=== PATIENT | female | born 1965 | race Caucasian/White ===

== ENCOUNTER 2019-07-27 05:12 | Emergency (ER) | payer OTHER ==
[2019-07-27 07:08] LABS: ABSOLUTE LYMPHOCYTES (AUTO) 0.9 10^3/uL (0.5-4.7); ABSOLUTE MONOCYTES (AUTO) 0.6 10^3/uL (0.1-1.4); ABSOLUTE NEUT (AUTO) 8.9 10^3/uL (1.7-8.2); BASOPHILS % (AUTO) 0.3 % (0-2); EOSINOPHILS % (AUTO) 0.1 % (0-6); HEMATOCRIT 39.1 % (36.0-47.0); HEMOGLOBIN 12.6 g/dL (12.0-15.5); MEAN CORPUSCULAR HEMOGLOBIN 23.5 pg (27.0-33.4); MEAN CORPUSCULAR HGB CONC 32.2 g/dL (32.0-36.0); MEAN CORPUSCULAR VOLUME 73 fl (80-97); MONOCYTES % (AUTO) 5.3 % (3-13); PLATELET COUNT 228 10^3/uL (150-450); RED BLOOD COUNT 5.36 10^6/uL (3.72-5.28); RED CELL DISTRIBUTION WIDTH 16.3 % (11.5-14.0); SEGMENTED NEUTROPHILS % (AUTO) 85.3 % (42-78); TOTAL CELLS COUNTED % (AUTO) 100 %; WHITE BLOOD COUNT 10.4 10^3/uL (4.0-10.5)
[2019-07-27 07:19] LABS: AMORPHOUS SEDIMENT,URINE TRACE /HPF; APPEARANCE,URINE CLOUDY; BILIRUBIN,URINE NEGATIVE (NEGATIVE); COLOR,URINE YELLOW; GLUCOSE, URINE NEGATIVE (NEGATIVE); KETONES,URINE TRACE mg/dL (NEGATIVE); LEUKOCYTE ESTERASE,URINE NEGATIVE (NEGATIVE); NITRITE,URINE NEGATIVE (NEGATIVE); PROTEIN,URINE 100 mg/dL (NEGATIVE); URINE SPECIFIC GRAVITY 1.018; UROBILINOGEN,URINE NEGATIVE mg/dL (<2.0)
[2019-07-27] MEDS ORDERED: NORMAL SALINE 1000 ML 1,000 ML IV ONE (07:27)
[2019-07-27 07:31] LABS: ALBUMIN 4.2 g/dL (3.5-5.0); ALKALINE PHOSPHATASE 113 U/L (38-126); ANION GAP 11 (5-19); ASPARTATE AMINO TRANSFERASE 30 U/L (14-36); BILIRUBIN,TOTAL 1.2 mg/dL (0.2-1.3); BLOOD UREA NITROGEN 18 mg/dL (7-20); CALCIUM 9.5 mg/dL (8.4-10.2); CARBON DIOXIDE 30 mmol/L (22-30); CHLORIDE 103 mmol/L (98-107); GLUCOSE 105 mg/dL (75-110); POTASSIUM 3.9 mmol/L (3.6-5.0); TOTAL PROTEIN 6.9 g/dL (6.3-8.2)
--- NOTE | 2019-07-27 08:23 | RADIOLOGY REPORT (SQ) ---
EXAM DESCRIPTION: CT ABD/PELVIS NO ORAL OR IV COMPLETED DATE/TIME: 07/27/2019 7:49 am REASON FOR STUDY: flank pain, L COMPARISON: None. TECHNIQUE: CT scan of the abdomen and pelvis performed without intravenous or oral contrast. Images reviewed with lung, soft tissue, and bone windows. Reconstructed coronal and sagittal MPR images revi ewed. All images stored on PACS. All CT scanners at this facility use dose modulation, iterative reconstruction, and/or weight based d osing when appropriate to reduce radiation dose to as low as reasonably achievable (ALARA). [facility]: Dose Right [facility]: CareDose [facility]: Dose Right [facility]: Teradose 4D [facility]: Smart Oonair RADIATION DOSE: CT Rad equipment meets quality standard of care and radiation dose reduction techniq ues were employed. CTDIvol: 6.6 mGy. DLP: 364 mGy-cm.mGy. LIMITATIONS: None. FINDINGS: LOWER CHEST: No basilar consolidation or pleural effusion. No cardiomegaly or pericardial effusion. NON-CONTRASTED LIVER, SPLEEN, ADRENALS: Evaluation is limited due to the absence of intravenous contr ast. The 1.6 cm long axis fluid-attenuation lesion within segment II of the liver could represent a simple hepatic cyst. There is no CT evidence of hepatic steatosis. The spleen is normal in size. T here is no abnormality of the adrenal glands PANCREAS: No abnormality of the pancreas GALLBLADDER: No abnormality that is apparent on CT. RIGHT KIDNEY AND URETER: The kidney is asymmetrically enlarged and there is asymmetric stranding of t he perinephric fat and mild hydronephrosis/hydroureter; these findings are secondary to a 2.5 mm calc ulus in the right ureterovesical junction. There is no other renal or ureteral calculus. LEFT KIDNEY AND URETER: Evaluation is limited due to the absence of intravenous contrast. There is no hydronephrosis, nephrolithiasis, hydroureter or ureterolithiasis. AORTA AND RETROPERITONEUM: No aneurysmal dilatation of the abdominal aorta or enlarged retroperitonea l adenopathy. BOWEL AND PERITONEAL CAVITY: No abnormality. APPENDIX: Normal. PELVIS, BLADDER, AND ABDOMINAL WALL:No adnexal mass, pelvic adenopathy, or pelvic free fluid. The ur inary bladder is contracted. There is no abdominal wall mass or hernia BONES: No acute findings. OTHER: None. IMPRESSION: 2.5 mm calculus in the right ureterovesical junction the results in mild upstream hydron ephrosis and hydroureter COMMENT: Quality ID # [id number]: Final reports with documentation of one or more dose reduction techniques (e.g., Automated exposure control, adjustment of the mA and/or kV according to patient size, use of iterative reconstruction technique) TECHNICAL DOCUMENTATION: JOB ID: [id number] [employer]- All Rights Reserved Reading location - IP/workstation name: [email or web address]
[2019-07-27] MEDS ORDERED: ONDANSETRON ODT 4 MG TAB (6 TAB/ER DISP) PO PRN (08:30)
[2019-07-27] MEDS ORDERED: HYDROCODONE/ACETAMINOPHEN 5-325 MG (6 TAB/ER DISP) PO PRN (08:30)
[2019-07-27] MEDS ORDERED: OXYCODONE-ACETAMINOPHEN 5-325 MG TABLET PO ONE (08:32)
[2019-07-27 08:50] VITALS: BP 124/90
--- NOTE | 2019-07-27 12:34 | ER Document Report ---
Entered by MALATHI SMILEY SCRIBE 07/27/19 0701 Acting as scribe for:ALEXA RHODES DO ED General - General Chief Complaint: Flank Pain Stated Complaint: flank pain Time Seen by Provider: 07/27/19 06:09 Primary Care Provider: IHSAN DESIR MD [NO LOCAL MD] - Follow up in 1 week Mode of Arrival: Ambulatory Information source: Patient Notes: Patient is a 54-year-old female who presents to the emergency department today with complaints of right lower quadrant pain that radiates to her back with associated vomiting. Patient states that she had a lot to drink last night and she thinks it may be related to her pain and vomiting. Patient also mentions that she has had bowel movements every 20 minutes for the last 2 hours. Patient reports that she has not had diarrhea, stating that they are normal solid bowel movements. Patient denies any urinary symptoms, diarrhea, or fall/trauma. Past Medical History - General Information source: Patient - Social History Smoking Status: Never Smoker Cigarette use (# per day): No Frequency of alcohol use: None Drug Abuse: None Lives with: Family Family History: Reviewed & Not Pertinent Review of Systems - Review of Systems Constitutional: No symptoms reported EENT: No symptoms reported Cardiovascular: No symptoms reported Respiratory: No symptoms reported Gastrointestinal: See HPI, Abdominal pain - RLQ, radiates to back, Vomiting. denies: Diarrhea Genitourinary: denies: Dysuria Female Genitourinary: No symptoms reported Musculoskeletal: See HPI, Joint pain - right hip Skin: No symptoms reported Hematologic/Lymphatic: No symptoms reported Neurological/Psychological: No symptoms reported -: Yes All other systems reviewed and negative Physical Exam - Vital signs Vitals: Temp Pulse Resp BP Pulse Ox 98.1 F 67 18 124/90 H 99 07/27/19 08:45 07/27/19 08:45 07/27/19 08:45 07/27/19 08:45 07/27/19 08:45 - Notes Notes: Physical Exam: General: Alert, appears well. HEENT: Normocephalic. Atraumatic. PERRL. Extraocular movements intact. Oropharynx clear. Neck: Supple. Non-tender. Respiratory: No respiratory distress. Clear and equal breath sounds bilaterally. Cardiovascular: Regular rate and rhythm. Abdominal: Normal Inspection. Non-tender. No distension. Normal Bowel Sounds. Back: R CVA TTP Extremities: Moves all four extremities. Upper extremities: Normal inspection. Normal ROM. Lower extremities: Normal inspection. No edema. Normal ROM. Neurological: Normal cognition. AAOx4. Normal speech. Psychological: Normal affect. Normal Mood. Skin: Warm. Dry. Normal color. Course - Re-evaluation Re-evalutation: Patient is a 54-year-old female who comes in complaining of right flank and abdominal pain. Patient with nausea. CT with 2.5 mm ureteral stone. No evidence for infection. Blood work benign. Patient feels better after medication here. She will be discharged home with pain and nausea medication in addition to Flomax. Patient [place] out of town. She is to follow-up with a urologist when she gets back to where she lives. Understands and agrees with plan. Stable for discharge. - Vital Signs Vital signs: Temp Pulse Resp BP Pulse Ox 98.1 F 67 18 124/90 H 99 07/27/19 08:45 07/27/19 08:45 07/27/19 08:45 07/27/19 08:45 07/27/19 08:45 - Laboratory Result Diagrams: 07/27/19 06:54 07/27/19 06:54 Laboratory results interpreted by me: 07/27/19 07/27/19 06:00 06:54 RBC 5.36 H MCV 73 L MCH 23.5 L RDW 16.3 H Lymph % (Auto) 9.0 L Absolute Neuts (auto) 8.9 H Seg Neutrophils % 85.3 H Urine Protein 100 H Urine Ketones TRACE H - Diagnostic Test Radiology reviewed: Reports reviewed Discharge - Discharge Clinical Impression: Ureteral stone with hydronephrosis Condition: Stable Disposition: HOME, SELF-CARE Instructions: Kidney Stone ([facility]) Prescriptions: Ondansetron [Zofran Odt 4 mg Tablet] 1 tab PO Q6HP PRN #15 tab.rapdis PRN Reason: For Nausea/Vomiting Tamsulosin HCl [Flomax 0.4 mg Cap.sr] 0.4 mg PO DAILY #7 cap.sr.24h Oxycodone HCl/Acetaminophen [Percocet 5-325 mg Tablet] 1 - 2 tab PO Q4H PRN #15 tablet PRN Reason: Referrals: IHSAN DESIR MD [NO LOCAL MD] - Follow up in 1 week I personally performed the services described in the documentation, reviewed and edited the documentation which was dictated to the scribe in my presence, and it accurately records my words and actions.
== END 2019-07-27 08:59 | disposition home or self-care (01) ==
LOC: ER 05:12
DX: N13.2 Hydronephrosis with renal and ureteral calculous obstruction (principal); R10.31 Right lower quadrant pain; R11.10 Vomiting, unspecified
CPT/HCPCS: 36415; 74176; 80053; 81001; 85025